=== PATIENT | male | born 1975 | race Caucasian/White ===

== ENCOUNTER 2018-08-15 12:43 | Emergency (ER) | payer OTHER ==
[2018-08-15 12:50] VITALS: TEMP 98.4
[2018-08-15] MEDS ORDERED: PROPARACAINE 0.5% OPHTH DROPS 15 ML BTL BOTH EYES STA (12:58)
[2018-08-15] MEDS ORDERED: ERYTHROMYCIN 5 MG/GM OPHTH OINT 3.5 GM TUBE LEFT EYE STA (13:08)
--- NOTE | 2018-08-15 13:11 | ED ---
Eye Problem HPI - General Chief complaint: Eye Problems Stated complaint: FB LEFT EYE Time Seen by Provider: 08/15/18 12:58 Source: patient, RN notes reviewed, old records reviewed Mode of arrival: ambulatory Limitations: no limitations - History of Present Illness Initial comments: 42-year-old male presents emergency department today for evaluation complains of left eye irritation after having a piece of metal in his eye. Patient reports that he was sleeping his garage on night and feels like he got something in it. Patient states that yesterday he fell or just eyelashes eye. [facility] they were not unable to remove the entire piece of metal in the eye. Patient has had no visual changes. He does not wear glasses or contacts. He reports tetanus is up-to-date. - Related Data Allergies Allergy/AdvReac Type Severity Reaction Status Date / Time amoxicillin Allergy Unknown Verified 08/15/18 12:50 Review of Systems ROS Statement: Those systems with pertinent positive or pertinent negative responses have been documented in the HPI. ROS Other: All systems not noted in ROS Statement are negative. Past Medical History Past Medical History: No Reported History Additional Past Medical History / Comment(s): spinal meningitis History of Any Multi-Drug Resistant Organisms: None Reported Additional Past Surgical History / Comment(s): brain shunts Past Psychological History: No Psychological Hx Reported Smoking Status: Never smoker Past Alcohol Use History: None Reported Past Drug Use History: None Reported General Exam - General Exam Comments Initial Comments: 42-year-old male. Alert and oriented. No significant distress. Limitations: no limitations General appearance: alert, in no apparent distress Head exam: Present: atraumatic, normocephalic, normal inspection Eye exam: Absent: normal appearance (Left eye conjunctival injection. Evidence of metal foreign body at 11 o'clock position of the iris.) ENT exam: Present: normal exam, mucous membranes moist Neck exam: Present: normal inspection. Absent: tenderness, meningismus, lymphadenopathy Respiratory exam: Present: normal lung sounds bilaterally. Absent: respiratory distress, wheezes, rales, rhonchi, stridor Cardiovascular Exam: Present: regular rate, normal rhythm, normal heart sounds. Absent: systolic murmur, diastolic murmur, rubs, gallop, clicks GI/Abdominal exam: Present: soft, normal bowel sounds. Absent: distended, tenderness, guarding, rebound, rigid Extremities exam: Present: normal inspection, full ROM, normal capillary refill. Absent: tenderness, pedal edema, joint swelling, calf tenderness Back exam: Present: normal inspection Neurological exam: Present: alert, oriented X3, CN II-XII intact Psychiatric exam: Present: normal affect, normal mood Skin exam: Present: warm, dry, intact, normal color. Absent: rash Course Vital Signs 08/15/18 12:47 Temperature 98.4 F Pulse Rate 80 Respiratory 16 Rate Blood Pressure 195/102 O2 Sat by Pulse 98 Oximetry Medical Decision Making - Medical Decision Making 42-year-old male presents results today with eye irritation an old retained foreign body for the past 2 days. [facility]. Patient has a small foreign body at the 11 o'clock posi tion. Likely related to metal. Distant tetanus is up-to-date. Patient's eye was in the size of proparacaine and fluorescein eye exam was performed. No evidence of ulceration or other areas of abrasion or foreign body. Patient's arm body was easily removed with [place] brush. I discussed putting the Patient reports recent eye ointment and given referral for ophthalmology if symptoms continue persist. Patient tolerated procedure well and feels better on discharge. Disposition Clinical Impression: Corneal foreign body Disposition: HOME SELF-CARE Condition: Good Instructions (If sedation given, give patient instructions): Eye Foreign Body (ED) Additional Instructions: Patient advised to follow-up with primary care doctor. Return to the emergency department if any alarming signs or symptoms occur. Follow-up with ophthalmology as well. Apply the eye ointment as directed. Is patient prescribed a controlled substance at d/c from ED?: No Referrals: Prakash Cain MD [Primary Care Provider] - 1-2 days Mauricio Carrero MD [STAFF PHYSICIAN] - 1-2 days Time of Disposition: 13:57
[2018-08-15 14:38] VITALS: BP 150/107; PULSE 77; RESP 18
== END 2018-08-15 14:30 | disposition home or self-care (01) ==
LOC: EC 12:43
DX: T15.02XA Foreign body in cornea, left eye, initial encounter (principal); Z88.0 Allergy status to penicillin
CPT/HCPCS: 65220; 99283

== ENCOUNTER → 2021-10-17 | Outpatient (CLI) | payer OTHER ==
--- NOTE | 2021-10-17 16:40 | MR ---
EXAMINATION TYPE: MR brain wo/w con DATE OF EXAM: 10/17/2021 COMPARISON: HISTORY: NO prior, hypo pituitarism, low testorterone and prolactin levels TECHNIQUE: Multiplanar, multisequence images of the brain and brainstem is performed without and with IV contras t, utilizing 12ml mL intravenous Gadavist . FINDINGS: Diffusion weighted images demonstrate no evidence of a recent infarct or other diffusion ab normality. There is no extra-axial fluid collection,, local craniotomy suspected focus of hyperinten sity within the centrum semiovale ovale on the right on T2 and inversion recovery sequences is presen t in the pericallosal region, there is some focal sulcal prominence in the right frontal lobe, questi on prior instrumentation. The ventricular system and cisternal spaces are normal in size and appeara nce. The brain volume is age appropriate. Midline structures demonstrate normal morphology with exception of the pituitary, there is a partiall y empty sella. The craniocervical junction appears within normal limits. Post contrast images demon strate no abnormal enhancement. The dural venous sinuses appear patent. The visualized sinuses are re markable for mucosal disease in the left maxillary sinus, ethmoid air cells, frontal sinus and the gl obes are intact. IMPRESSION: Correlate for remote history of craniotomy, minimal abnormal White matter signal is noted and of questionable clinical significance. Sinus disease. Partially empty sella is noted.
== END | disposition home or self-care (01) ==
LOC: RADMRIMAIN 07:24
DX: G93.89 Other specified disorders of brain (principal)
CPT/HCPCS: 70553; A9585

== ENCOUNTER → 2023-04-10 | Outpatient (CLI) | payer OTHER ==
--- NOTE | 2023-04-10 18:42 | P.PN ---
Subjective DATE: 04/10/2023 FOLLOW UP VISIT. Patient with obstructive sleep apnea hypopnea syndrome return to sleep center for follow-up visit. Recently patient had sleep study which documented obstructive sleep apnea hypopnea syndrome. Patient was initiated on PAP therapy and today is first visit after treatment was started. Patient was able to use PAP equipment every night for the whole night. The patient does not have significant problems with the mask, PAP pressure and humidification. [place] sleepiness scale is 2. Patient feels better after starting to use CPAP equipment. I checked information from PAP unit. PAP unit pressure 7-15, average 10.1 cm H2O. Usage is 100 % for more then 4 hours, average 6.5 hours per night. Leak is high 94 l/m. Apnea Hypopnea Index is 0.5, which is normal. MEDICATIONS:1. Lexapro 20 mg once a day 2. Benadryl During physical exam: GENERAL: A pleasant patient without any distress. VITAL SIGNS: BP 137/89, HR 92, RR 16 , weight 277.8, temperature 98.3, oxygen saturation at room air 95% . HEENT: PERRLA, EOMI.low position of soft palate, Mall[place]ati 4 . NECK: Supple. No JVD. LUNGS: Clear to percussion and to auscultation. Good air exchange. No wheezing or rhonchi. HEART: S1, S2 regular. ABDOMEN: Soft and nontender.[] EXTREMITIES: No clubbing or cyanosis. SLEEVE BASTER: Awake, alert, and oriented x3. No focal deficit. Impressions: 1. Obstructive sleep apnea-hypopnea syndrome. Patient demonstrated great compliance with treatment, benefiting from treatment. 2. Obesity. 3. Acid reflux. 4. Status post nasal fracture. 5. 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 Plan: 1. Continue using PAP equipment every night for the whole night. 2. To change air filter at least 1-2 times per month. 3. PAP unit should stay lower then position of the head. 4. Advised patient to remove all remaining water from humidifier canister daily and make it dry after each usage. Refill canister with fresh distilled water before each usage. 5. Sleep hygiene with regular time in bed for at least 8 hours. 6. Precautions related to driving. No driving if feel any sleepiness. 7. I will maintain prescription for PAP supplies including mask, tube, filters. Prescription for chin strap. 8. Follow up visit in 6 months or earlier if patient has any problems. 9. Watching and losing weight. Thank you very much for allowing me to participate in the management of your patient. Grant Wolff MD, PhD, FAASM. Diplomat of [employer], Sleep Medicine Board by [employer] Messenger Copy of [facility] [place]
== END ==
LOC: 3 N SLEEP 14:34
PROVIDERS: ATTEND Internal Medicine
DX: G47.33 Obstructive sleep apnea (adult) (pediatric) (principal); E66.9 Obesity, unspecified; K21.9 Gastro-esophageal reflux disease without esophagitis; Z86.61 Personal history of infections of the central nervous system; Z99.89 Dependence on other enabling machines and devices; Z88.0 Allergy status to penicillin
CPT/HCPCS: 99212